=== PATIENT | female | born 1985 | race Caucasian/White ===

== ENCOUNTER → 2016-10-16 | Outpatient (CLI) | payer OTHER ==
[~2016-10-16] MED LIST: LORA10CA2 PO; ONDA4TAB10 SL
[2016-10-16 12:40] LABS: PREG INTERNAL NEGATIVE QC NEG CLEAR BACKGROUND; PREG INTERNAL POSITIVE QC POS CONTROL LINE
== END | disposition home or self-care (01) ==
LOC: C.LAB1850 11:02
PROVIDERS: ATTEND Obstetrics & Gynecology
DX: N91.2 Amenorrhea, unspecified (principal)

== ENCOUNTER 2016-11-17 10:39 | Emergency (ER) | payer OTHER ==
[~2016-11-17] VITALS: Ht 167.6 cm; Wt 81.6 kg
[2016-11-17 10:53] VITALS: TEMP 36.7; Ht 167.6 cm; Wt 81.6 kg
[2016-11-17] MEDS ORDERED: LORA10CA2 PO (11:18)
[2016-11-17 11:38] LABS: BASO % 0.3 %; BASO ABS # 0.01 K/uL (0-0.2); COMPLETE YES; EOS % 0.5 %; HEMATOCRIT 44.7 % (37-47); LYMPH % 14.4 %; LYMPH ABS # 0.54 K/uL (1.2-3.4); MEAN CELL VOLUME 88.9 fL (80-100); MEAN CORPUSCULAR HGB CONC 32.7 g/dl (32-36); MONO % 6.9 %; NEUT % 77.9 %; PLATELET COUNT 217 K/uL (130-400); RED BLOOD COUNT 5.03 M/uL (4.2-5.4); WHITE BLOOD COUNT 3.75 K/uL (4.8-10.8)
[2016-11-17 11:53] LABS: URINE APPEARANCE CLOUDY (CLEAR); URINE BILIRUBIN NEG (NEG); URINE COLOR DK YELLOW; URINE EPITHELIAL CELL AUTO >30 /lpf (0-5); URINE NITRITE NEG (NEG); URINE SPECIFIC GRAVITY 1.021 (1.000-1.030); UROBILINOGEN NEG (NEG); ZZUR CULT IF INDIC CLEAN CATCH YES
[2016-11-17 11:56] LABS: MANUAL MICROSCOPIC REQUIRED? NO; REVIEW REQ? YES
[2016-11-17 11:58] LABS: BUN/CREATININE RATIO 6.4 (10-20); CALCIUM 8.9 mg/dl (8.5-10.1); CREATININE 0.81 mg/dl (0.60-1.20); POTASSIUM 3.4 mmol/L (3.5-5.1)
[2016-11-17] MEDS ORDERED: SODIUM CHLORIDE 0.9% 1000ML 1,000 ML IV ONE (12:07)
[2016-11-17] MEDS ORDERED: SODIUM CHLORIDE 0.9% 1000ML 1,000 ML IV STA (12:07)
[2016-11-17] MEDS ORDERED: MoRPHine SULFATE 4 MG/ML 1 ML CARP\\VIAL IV STA (12:07)
[2016-11-17] MEDS ORDERED: KETOROLAC TROMETHAMINE 30 MG/ML VIAL IV STA (12:07)
--- NOTE | 2016-11-17 12:11 | EMERGENCY ROOM VISIT NOTE ---
History Report prepared by Stephany: Clay Crsos Under the Supervision of: Dr. Bobby Heller M.D. First contact with patient: 12:00 Chief Complaint: ABDOMINAL PAIN Stated Complaint: ABD. PAIN History of Present Illness The patient is a 31 year old female who presents to the Emergency Room with complaints of worsening intermittent, sharp and stabbing abdominal pain for the past five days. The patient states that she has been feeling worn out, nauseous , and she has had intermittent headaches and diarrhea this morning. The patient states that it got sharp last night in her epigastric area. She states that nothing makes it better or worse, and she denies any vomiting. She denies any melena, hematochezia, urinary symptoms, vaginal bleeding, vaginal discharge, cough, or swelling in her legs. The patient states that she has not had any abdominal surgeries, and she has not chronic medical problems. The patient states that she has not been eating very much, and not many people around her are sick. Source of History: patient Onset: five days ago Position: abdomen Quality: sharp, stabbing Associated Symptoms: + headache, + nausea, + diarrhea, No vomiting, No melena, No hematochezia, No urinary symptoms Review of Systems See HPI for pertinent positives & negatives. A total of 10 systems reviewed and were otherwise negative. Past Medical & Surgical Surgical Problems: (1) Hx of tonsillectomy (2) [place] teeth extracted Old medical records were reviewed. Nurse's notes were reviewed and I agree with. Family History FHx: cancer Hypertension Kidney disease Kidney stones Social History Smoking Status: Never Smoker Marital Status: Housing Status: lives with family Occupation Status: employed Current/Historical Medications Scheduled Loratadine (Claritin), 10 MG PO DAILY Ondasetron Odt (Zofran Odt), 4 MG SL Q6H Allergies Uncoded Allergies: NKDA (Allergy, Unknown, 10/02/03) Physical Exam Vital Signs Date Time Temp Pulse Resp B/P (MAP) Pulse Ox O2 Delivery O2 Flow Rate FiO2 11/17/16 13:48 95 18 126/89 97 11/17/16 13:02 92 16 139/96 95 Room Air 11/17/16 10:53 36.7 98 18 134/80 96 Room Air Physical Exam General: Non-ill appearing young female in no acute distress. HEENT: Normal cephalic atraumatic. Pupils are equal round and reactive to light. Extraocular movements are intact. Oropharynx is pink with moist mucous membranes. No swelling of the mouth lips or tongue. Neck: Supple with a midline trachea. No meningeal signs or stiffness, no JVD or bruits. No Stridor. Chest: Clear to auscultation bilaterally. No wheezes or rhonchi. No increased work of breathing. Heart: regular rate and rhythm. Abdomen: Minimal epigastric tenderness. Negative Abebe's sign. No lower abdominal tenderness. Soft, nondistended without rebound guarding or rigidity. Extremities: No cyanosis clubbing or edema. No calf tenderness or assymetry Spine/Back. Non tender to palpation. No CVA tenderness Skin: Good turgor without rashes. Neurologic exam: Cranial nerves two through 12 are intact. Motor and sensation are intact and symmetrical throughout. Medical Decision & Procedures ER Provider Diagnostic Interpretation: Radiology results as stated below per my review and radiologist interpretation: BILIARY ULTRASOUND CLINICAL HISTORY: Right upper quadrant abdominal pain COMPARISON STUDY: No previous studies for comparison. FINDINGS: The pancreas appears sonographically normal. The gallbladder appears sonographically normal. The liver appears sonographically normal. There is no ductal dilatation. The common bile duct measures 3 mm. There is no right-sided hydronephrosis. IMPRESSION: Normal biliary ultrasound. Electronically signed by: Mike Daniels M.D. 11/17/2016 12:47 PM Dictated Date/Time: 11/17/2016 12:47 PM Laboratory Results 11/17/16 11:15 Red Blood Count 5.03, Mean Corpuscular Volume 88.9, Mean Corpuscular Hemoglobin 29.0, Mean Corpuscular Hemoglobin Concent 32.7, Mean Platelet Volume 9.0, Neutrophils (%) (Auto) 77.9, Lymphocytes (%) (Auto) 14.4, Monocytes (%) (Auto) 6.9, Eosinophils (%) (Auto) 0.5, Basophils (%) (Auto) 0.3, Neutrophils # (Auto) 2.92, Lymphocytes # (Auto) 0.54, Monocytes # (Auto) 0.26, Eosinophils # (Auto) 0.02, Basophils # (Auto) 0.01 11/17/16 11:15 Test 11/17/16 11:10 11/17/16 11:15 11/17/16 11:29 Urine Color DK YELLOW Urine Appearance CLOUDY (CLEAR) Urine pH 5.0 (4.5-7.5) Urine Specific [place] 1.021 (1.000-1.030) Urine Protein NEG (NEG) Urine Glucose (UA) NEG (NEG) Urine Ketones 3+ (NEG) Urine Occult Blood TRACE (NEG) Urine Nitrite NEG (NEG) Urine Bilirubin NEG (NEG) Urine Urobilinogen NEG (NEG) Urine Leukocyte Esterase NEG (NEG) Urine WBC (Auto) 10-30 /hpf (0-5) Urine RBC (Auto) 10-30 /hpf (0-4) Urine Hyaline Casts (Auto) 1-5 /lpf (0-5) Urine Epithelial Cells (Auto) >30 /lpf (0-5) Urine Bacteria (Auto) 2+ (NEG) Urine Pathogenic Casts /lpf (0) Urine Mucus PRESENT (NONE PRSENT) White Blood Count 3.75 K/uL (4.8-10.8) Red Blood Count 5.03 M/uL (4.2-5.4) Hemoglobin 14.6 g/dL (12.0-16.0) Hematocrit 44.7 % (37-47) Mean Corpuscular Volume 88.9 fL (80-100) Mean Corpuscular Hemoglobin 29.0 pg (25-34) Mean Corpuscular Hemoglobin Concent 32.7 g/dl (32-36) Platelet Count 217 K/uL (130-400) Mean Platelet Volume 9.0 fL (7.4-10.4) Neutrophils (%) (Auto) 77.9 % Lymphocytes (%) (Auto) 14.4 % Monocytes (%) (Auto) 6.9 % Eosinophils (%) (Auto) 0.5 % Basophils (%) (Auto) 0.3 % Neutrophils # (Auto) 2.92 K/uL (1.4-6.5) Lymphocytes # (Auto) 0.54 K/uL (1.2-3.4) Monocytes # (Auto) 0.26 K/uL (0.11-0.59) Eosinophils # (Auto) 0.02 K/uL (0-0.5) Basophils # (Auto) 0.01 K/uL (0-0.2) RDW Standard Deviation 42.8 fL (36.4-46.3) RDW Coefficient of Variation 13.1 % (11.5-14.5) Immature Granulocyte % (Auto) 0.0 % Immature Granulocyte # (Auto) 0.00 K/uL (0.00-0.02) Anion Gap 7.0 mmol/L (3-11) Est Creatinine Clear Calc Drug Dose 110.3 ml/min Estimated GFR () 113.8 Estimated GFR (Non- 98.1 BUN/Creatinine Ratio 6.4 (10-20) Calcium Level 8.9 mg/dl (8.5-10.1) Total Bilirubin 0.3 mg/dl (0.2-1) Aspartate Amino Transf (AST/SGOT) 22 U/L (15-37) Alanine Aminotransferase (ALT/SGPT) 21 U/L (12-78) Alkaline Phosphatase 65 U/L (45-117) Total Protein 6.9 gm/dl (6.4-8.2) Albumin 3.5 gm/dl (3.4-5.0) Globulin 3.4 gm/dl (2.5-4.0) Albumin/Globulin Ratio 1.0 (0.9-2) Lipase 149 U/L (73-393) Urine Test NEG (NEG) Laboratory studies as stated above per my review. Medications Administered Medications (Trade) Dose Ordered Sig/Manjit Route Start Time Stop Time Status Last Admin Dose Admin Ketorolac Tromethamine (Toradol Inj) 30 mg NOW STAT IV 11/17/16 12:07 11/17/16 12:09 DC 11/17/16 13:03 30 MG Morphine Sulfate (MoRPHine SULFATE INJ) 4 mg NOW STAT IV 11/17/16 12:07 11/17/16 12:09 DC 11/17/16 13:04 4 MG Sodium Chloride 1,000 ml @ 999 mls/hr Q1H1M STAT IV 11/17/16 12:07 11/17/16 13:07 DC 11/17/16 13:05 999 MLS/HR ED Course 1200: Past medical records reviewed. The patient was evaluated in room C7, and a complete history and physical examination were performed. 1207: Sodium Chloride 1000 ml @ 200 mls/hr IV, Sodium Chloride 1000 ml @ 999 mls /hr IV, Morphine Sulfate 4mg IV, Toradol Inj 30mg IV 1332: I reevaluated the patient, and she was feeling better. I pressed on the patient's abdomen, and she had no tenderness. She states that she wants to go home. The patient will be discharged home. Medical Decision Differentials include, but are not limited to; viral illness, gall bladder disease, appendicitis, dehydration, , UTI, electrolyte or metabolic abnormality. This patient comes in as described above. She was placed in room C7. She is here for intermittent abdominal pain and nausea. On exam, her abdomen is benign and nontender. She was hydrated with IV normal saline bolus. She also received morphine 4 mg IV and Zofran 4 mg IV. She was reassessed and was established white count. She has no significant electrolyte or metabolic abnormalities abdomen otherwise. She has nothing to suggest sepsis. She's had no lower abdominal tenderness to suggest appendicitis or diverticulitis. Gallbladder ultrasound unremarkable. She has nothing to suggest pancreatitis. She is not . Her urinalysis shows a contaminated specimen. Medication Reconcilliation Current Medication List: was personally reviewed by me Blood Pressure Screening Patient's blood pressure: Normal blood pressure Impression Primary Impression: Nausea Additional Impression: Epigastric abdominal pain Scribe Attestation The scribe's documentation has been prepared under my direction and personally reviewed by me in its entirety. I confirm that the note above accurately reflects all work, treatment, procedures, and medical decision making performed by me. Departure Information Dispostion Home / Self-Care Prescriptions Ondasetron Odt (ZOFRAN ODT) 4 Mg Tab 4 MG SL Q6H for Nausea, #10 TAB Prov: Bobby Heller M.D. 11/17/16 Referrals Flakito Trotter M.D. (PCP) Forms HOME CARE DOCUMENTATION FORM, IMPORTANT VISIT INFORMATION Patient Instructions My [facility] [address] Additional Instructions Rest Drink plenty of fluids. Mild diet. For nausea, May use Zofran 4 mg every 6 hours, take with food Return if: Fever, increasing pain or worsening symptoms, not tolerating fluids, fever or chills, any new problems or concerns Follow-up with your doctor in 1-2 days for recheck if not better or return here at any point if symptoms worsen Problem Qualifiers
[2016-11-17 12:20] LABS: URINE MUCUS PRESENT (NONE PRSENT)
--- NOTE | 2016-11-17 12:49 | DIAGNOSTIC IMAGING REPORT ---
BILIARY ULTRASOUND CLINICAL HISTORY: Right upper quadrant abdominal pain COMPARISON STUDY: No previous studies for comparison. FINDINGS: The pancreas appears sonographically normal. The gallbladder appears sonographically normal. The liver appears sonographically normal. There is no ductal dilatation. The common bile duct measures 3 mm. There is no right-sided hydronephrosis. IMPRESSION: Normal biliary ultrasound. Electronically signed by: Mike Daniels M.D. 11/17/2016 12:47 PM Dictated Date/Time: 11/17/2016 12:47 PM
[2016-11-17] MEDS ORDERED: ONDA4TAB10 SL (13:33)
[2016-11-17 13:48] VITALS: BP 126/89; PULSE 95; O2SAT 97
== END 2016-11-17 13:48 | disposition home or self-care (01) ==
LOC: C.EDB 10:41 → C.EDC 13:48
DX: R11.0 Nausea (principal); R10.13 Epigastric pain; Z82.49 Family history of ischemic heart disease and other diseases of the circulatory system

== ENCOUNTER 2017-04-25 12:26 | Emergency (ER) | payer OTHER ==
[~2017-04-25] VITALS: Ht 170.2 cm; Wt 84.7 kg
[2017-04-25 12:32] VITALS: TEMP 37; Ht 170.2 cm; Wt 84.7 kg
[2017-04-25] MEDS ORDERED: LIDOCAINE/EPINEPHRINE 1% 20 ML VIAL INFIL STA (12:59)
[2017-04-25] MEDS ORDERED: ACETAMINOPHEN 325 MG TAB PO STA (14:29)
--- NOTE | 2017-04-25 14:36 | DIAGNOSTIC IMAGING REPORT ---
RIGHT PERISCAPULAR SOFT TISSUE ULTRASOUND CLINICAL HISTORY: Right periscapular mass. COMPARISON STUDY: No previous studies for comparison. FINDINGS: In the right medial periscapular region, there is a hypoechoic subcutaneous complex avascular mass measuring 24 x 16 x 22 mm. IMPRESSION: Subcutaneous complex 24 x 16 x 22 mm hypoechoic mass, corresponds to the palpable abnormality. This lesion is avascular without surrounding hypervascularity. The lesion is felt to be complex cystic or solid. Electronically signed by: Mike Daniels M.D. 04/25/2017 2:34 PM Dictated Date/Time: 04/25/2017 2:31 PM
--- NOTE | 2017-04-25 14:42 | EMERGENCY ROOM VISIT NOTE ---
History First contact with patient: 12:54 Chief Complaint: INFECTION Stated Complaint: INFECTED CYST ON BACK Nursing Triage Summary: patient with cyst on the back that has not improved has been on antibiotics since thursday History of Present Illness The patient is a 31 year old female who presents to the Emergency Room via private vehicle with complaints of "infected cyst on back". The patient states that this past Thursday she noticed redness on her right posterior scapular region on the skin. This was overlying an area of a pre-existing cyst that she' s had for about 15 years. She notes now it is red, painful therefore prompting a visit to her family doctor on Thursday. They placed upon Keflex. This was because she notes that she may becoming /trying to conceive. She notes that she did have a vomiting 4 days ago, but none since. She notes that her temperature yesterday was around 99 but not over 100. There is no vomiting today. Review of Systems A complete 6-point Review of Systems was discussed with the patient, with pertinent positives and negatives listed in the History of Present Illness. All remaining Review of Systems questions can be considered negative unless otherwise specified. Past Medical/Surgical History Surgical Problems: (1) Hx of tonsillectomy (2) [place] teeth extracted Family History FHx: cancer Hypertension Kidney disease Kidney stones Social History Smoking Status: Never Smoker Marital Status: Housing Status: lives with family Occupation Status: employed Current/Historical Medications Scheduled Clindamycin HCl (Clindamycin HCl), 1 CAP PO TID Physical Exam Vital Signs Date Time Temp Pulse Resp B/P (MAP) Pulse Ox O2 Delivery O2 Flow Rate FiO2 04/25/17 15:40 72 20 127/76 99 04/25/17 14:30 76 18 135/96 96 Room Air 04/25/17 12:32 37.0 124 20 145/87 98 Room Air Physical Exam VITAL SIGNS - Vital signs and nursing notes were reviewed. Stable. Tachycardic , this resolved throughout her stay without intervention. GENERAL -31-year-old female appearing her stated age who is in no acute distress. Communicates well with provider and answers questions appropriately. SKIN - there is a small, nonfluctuant 3 cm x 3 cm raised erythematous region on the patient's back, within the skin overlying the right scapula. It is just medial to the scapula. There is no drainage. There is a small pinpoint center that appears to have an ulceration/hole. HEAD - NC/AT. EYES - Sclera anicteric. Medical Decision & Procedures ER Provider Diagnostic Interpretation: RIGHT PERISCAPULAR SOFT TISSUE ULTRASOUND CLINICAL HISTORY: Right periscapular mass. COMPARISON STUDY: No previous studies for comparison. FINDINGS: In the right medial periscapular region, there is a hypoechoic subcutaneous complex avascular mass measuring 24 x 16 x 22 mm. IMPRESSION: Subcutaneous complex 24 x 16 x 22 mm hypoechoic mass, corresponds to the palpable abnormality. This lesion is avascular without surrounding hypervascularity. The lesion is felt to be complex cystic or solid. Electronically signed by: Mike Daniels M.D. 04/25/2017 2:34 PM Dictated Date/Time: 04/25/2017 2:31 PM Medications Administered Medications (Trade) Dose Ordered Sig/Manjit Route Start Time Stop Time Status Last Admin Dose Admin Acetaminophen (Tylenol Tab) 650 mg NOW STAT PO 04/25/17 14:29 04/25/17 14:30 DC 04/25/17 14:43 650 MG Medical Decision Patient was seen and evaluated as above. She presents to us today with a questionable abscess overlying her right scapula. She is nontoxic on exam. Although she notes that she did vomit 4 days ago, I believe it to be unrelated to this today. I do not suspect sepsis. I do not suspect SIRS. She is tachycardic, I believe secondary to being anxious. This was found to not be persistent throughout her stay as her vitals were repeated and they were 100% normal. I did discuss with her benefits versus risk of attempting to drain the suspected small abscess. I informed her that this could just be induration, and not an abscess. Consent was obtained. The region was cleansed with Betadine, and anesthetized with 2 mL's of 1% buffered lidocaine with epinephrine. A small scalpel was utilized to create a 1 mm incision to the depth of 3 mm in the central most region of the raised suspected abscess. No drainage was appreciated. One other attempt was made in a similar location without drainage. He did have a cystic like feel upon incision. Decision was made to obtain ultrasound to rule out underlying deep abscess. This revealed a complex cyst. I suspect this likely be more solid/sebaceous cystlike in nature. I do not suspect abscess. I believe that she most likely irritated the area overlying the 15-year-old cyst, and the small pinpoint area is the area where the infection may gotten him causing overlying cellulitis. At this time I will add clindamycin to her Keflex regimen as it is category B. She was thoroughly educated upon risk of C. difficile. She appears stable from patient management. Again she is nontoxic on exam. She was given Tylenol for pain. She has an appointment Thursday with her family doctor of which I believe is appropriate for follow-up regarding her wound here today. She is to return with worsening of which she was thoroughly educated upon those symptoms which to return. She was educated upon management, had questions answered prior to discharge, and was discharged home in good condition. In evaluation treatment this patient the following differential diagnoses were entertained: Cellulitis, sepsis, abscess, sebaceous cyst, among others. Impression Primary Impression: Cellulitis Departure Information Dispostion Home / Self-Care Condition GOOD Prescriptions Clindamycin HCl (Clindamycin HCl) 300 Mg Cap 1 CAP PO TID for 10 Days, #30 CAP Prov: Héctor Helton PA-C 04/25/17 Referrals Flakito Trotter M.D. (PCP) Patient Instructions My [facility] Additional Instructions You were seen in the emergency department for cellulitis of your R shoulder blade region. At this time there is no evidence of abscess or collection of pus. It is a solid collection likely a sebaceous cyst. Ultrasound as below. I recommend clindamycin 300 mg every 8 hours for 10 days. This is in addition to the Keflex. This is category B. Please eat yogurt with this. Please keep your scheduled follow-up on Thursday with her family doctor. Please return with any new/concerning symptoms as we discussed. RIGHT PERISCAPULAR SOFT TISSUE ULTRASOUND CLINICAL HISTORY: Right periscapular mass. COMPARISON STUDY: No previous studies for comparison. FINDINGS: In the right medial periscapular region, there is a hypoechoic subcutaneous complex avascular mass measuring 24 x 16 x 22 mm.
[2017-04-25] MEDS ORDERED: CLC/300 PO (15:08)
[2017-04-25 15:40] VITALS: BP 127/76; PULSE 72; O2SAT 99
== END 2017-04-25 15:42 | disposition home or self-care (01) ==
LOC: C.EDB 12:27 → C.EDD 15:42
DX: L03.312 Cellulitis of back [any part except buttock and flank] (principal); Z98.890 Other specified postprocedural states; Z80.9 Family history of malignant neoplasm, unspecified; Z82.49 Family history of ischemic heart disease and other diseases of the circulatory system; Z84.1 Family history of disorders of kidney and ureter

== ENCOUNTER 2022-07-18 05:32 | Inpatient (IN) ==
--- NOTE | 2022-07-09 14:24 | Anesthesiology Consultation ---
Date of Service July 09, 2022 Assessment & Plan (1) Encounter for pre-operative examination: - COVID screening: Per assessment on 07/09: No known COVID-19 positive contacts or current COVID-19 related symptoms. Travel screen negative. Patient vaccinated. At surgeon discretion if preop Covid testing being done. - Anesthesia concern: delivery of twins ([facility] 08/2018)- patient states she had severe nausea/vomiting felt related to "something in her spinal." Also concern of "dozing off and on" and drowsiness + violently shaking for about 12 hours. Anesthesia records scanned into [employer]. Chart Review Chart Review: entry level finance initiated History Surgery Operation Date: 07/18/22 07:30 Proposed Procedures p Section (Delivery of Baby Through Abdominal Incision) - Sergei Duckworth MD Height/Weight Height: 5 ft 7 in Weight: 97.976 kg Allergies Allergy/AdvReac Type Severity Reaction Status Date / Time hydrocodone AdvReac Severe N/V Verified 07/09/22 13:29 Medications Home Medications Medication Instructions Recorded Confirmed Last Taken vit no.95-ferrous 1 tab PO QAM 11/07/18 07/09/22 11/06/18 fumarate 28 mg-folic acid 800 mcg tablet () acetone (urine) test (Ketone Urine #50 ea 04/09/22 07/07/22 Unknown Test strips) blood sugar diagnostic (OneTouch #150 ea 04/09/22 07/07/22 Unknown Verio test strips) blood-glucose meter (OneTouch #1 ea 04/09/22 07/07/22 Unknown Verio Reflect Meter) lancets 33 gauge (OneTouch Delica #150 ea 04/09/22 07/07/22 Unknown Lancets) insulin NPH isoph U-100 human 100 8 unit (0.08 mL) subcut QPM #15 mL 05/07/22 07/09/22 Unknown unit/mL (3 mL) subcutaneous pen (Novolin N FlexPen) pen needle, diabetic 32 gauge x #100 ea 05/12/22 07/07/22 Unknown " (BD Ultra-Fine Bee Pen Needle) doxylamine succinate 25 mg tablet 25 mg PO HS PRN Sleep 07/09/22 07/09/22 Unknown (Unisom (doxylamine)) famotidine 10 mg tablet 10 mg PO HS 07/09/22 07/09/22 Unknown Past Medical History Medical History Anemia Gestational diabetes Salmonella food poisoning October 2017 Past Family History Family History Mother Hypertension Grandmother Diabetes Father Hypertension Other No family history of adverse response to anesthesia Past Surgical History Surgical History History of anesthesia reaction delivery of twins ([facility] 08/2018)- patient states she had severe nausea/vomiting felt related to "something in her spinal." Also concern of "dozing off and on" and drowsiness + violently shaking for about 12 hours. Anesthesia records scanned into [employer]. History of removal of cyst April 2017 on back S/P appendectomy 2018 S/P tonsillectomy Status post delivery twins 5-22-19 [place] teeth extracted Social History Smoking Status: Never smoker Do You Dip or Chew Tobacco: No Hx Alcohol Use: No Hx Substance Use: No substance use type: does not use
[2022-07-18] MEDS ORDERED: LACTATED RINGER'S 1,000 ML IV SCH ×2 (05:45→08:58)
[2022-07-18] MEDS ORDERED: CITRIC ACID/SODIUM CITRATE 15 ML UDC PO SCH (06:00)
[2022-07-18 06:21] LABS: Hematocrit (blood only) 38.7 % (37.0-47.0); Hemoglobin 12.9 g/dl (12.0-16.0); Mean Corpuscular Hemoglobin 29.5 pg (25.0-34.0); Mean Corpuscular Hgb Conc 33.3 g/dL (32.0-36.0); Mean Corpuscular Volume 88.4 fL (80.0-100.0); Platelet Count 274 K/uL (130-400); RDW Coefficient of Variation 13.2 % (11.5-14.5); RDW Standard Deviation 42.8 fL (36.4-46.3); Red Blood Count 4.38 M/uL (4.20-5.40); White Blood Count 7.45 K/ul (4.8-10.8)
[2022-07-18] MEDS ORDERED: fentaNYL citrate PF 100 MCG/2 ML VIAL ONE (06:55)
[2022-07-18] MEDS ORDERED: ONDANSETRON INJ 2 MG/ML 2 ML VIAL ONE (06:55)
[2022-07-18] MEDS ORDERED: PHENYLEPHRINE 100MCG/ML 5ML SYR ONE (06:55)
[2022-07-18] MEDS ORDERED: OXYTOCIN 10 UNITS/ML 10ML VIAL ONE (06:55)
[2022-07-18] MEDS ORDERED: MoRPHine SULFATE PF 1 MG/ML 10 ML AMP/VIAL ONE (06:55)
--- NOTE | 2022-07-18 07:38 | History & Physical Report ---
Date of Service July 18, 2022 Assessment & Plan (1) Supervision of elderly multigravida: Plan: 37yo presents for repeat LTCS with Hx of x 1 for twin delivery. 1. Fetus: Cat 1/ Reactive 2. Delivery: RLTCS. Consent reviewed and signed yesterday 3. A2gDM - BG prior to OR 4. Vitals: WNL (2) Previous delivery affecting , antepartum: (3) Insulin controlled gestational diabetes mellitus (GDM) during : Admission and Anticipated Discharge Date Admission Date: July 18, 2022 History of Present Illness Primary Care Provider: NO PCP 37yo presents for repeat LTCS with Hx of x 1 for twin delivery. complications: and Delivery Plans AMA *Weekly NST's @ 36wks GDM on insulin *Wkly NSTs @32wks and Twice wkly @36wks *Serial growth US @28wks *Deliver by [facility] Previous Section affecting - LTCS per report Considering TOLAC C/S SCHEDULED FOR 07/18/[address] DICKSON OB Labs: Blood Type O Positive 12/10/21 Antibody Screen NEGATIVE 12/10/21 Hemoglobin 11.4 g/dl (12.0-16.0) L 04/29/22 Hematocrit 35.1 % (34.1-44.9) 04/29/22 Mean Corpuscular Volume 89.1 fL (80.0-100.0) 12/10/21 Platelet Count 352 K/uL (130-400) 12/10/21 Rubella IgG AntibodyE Immune (Immune) 12/10/21 Rapid Plasma Reagin Nonreactive (Nonreactive) 12/10/21 Hepatitis B Surface Antigen Neg (Neg) 03/30/18 Hepatitis B Surface Antigen. NON-REACTIVE (NON-REACTIVE) 12/10/21 Hepatitis C Antibody (EIA) NON-REACTIVE (NON-REACTIVE) 12/10/21 HIV (1&2) Ab and P24 Ag, 4th Gener Neg (Neg) 03/30/18 HIV (1&2) Ag and Ab Confirmation NON-REACTIVE (NON-REACTIVE) 12/10/21 Glucose 1 Hour 50 gm Load 134 mg/dl (70-130) H 02/04/22 Maternal Serum Alpha Fetoprotein 81.4 NG/ML 05/28/18 OB Optional Labs: Chlamydia trachomatis RNA NOT DETECTED (NOT DETECTED) 12/10/21 Neisseria gonorrhoeae RNA NOT DETECTED (NOT DETECTED) 12/10/21 Alpha Fetoprotein Triple Screen SEE NOTE 05/28/18 Labs Reviewed: msafp declined --smp low risk panorama--akh failed 16 week 2 hr gtt.--akh Allergies Allergy/AdvReac Type Severity Reaction Status Date / Time hydrocodone AdvReac Severe N/V Verified 07/17/22 09:03 Home Medications Medication Instructions Recorded Confirmed Type vit no.95-ferrous 1 tab PO QAM 11/07/18 07/18/22 History fumarate 28 mg-folic acid 800 mcg tablet () acetone (urine) test (Ketone Urine #50 ea 04/09/22 07/17/22 Rx Test strips) blood sugar diagnostic (OneTouch #150 ea 04/09/22 07/17/22 Rx Verio test strips) blood-glucose meter (OneTouch #1 ea 04/09/22 07/17/22 Rx Verio Reflect Meter) lancets 33 gauge (OneTouch Delica #150 ea 04/09/22 07/17/22 Rx Lancets) pen needle, diabetic 32 gauge x #100 ea 05/12/22 07/17/22 Rx 5/32" (BD Ultra-Fine Bee Pen Needle) doxylamine succinate 25 mg tablet 25 mg PO HS PRN Sleep 07/09/22 07/18/22 History (Unisom (doxylamine)) famotidine 10 mg tablet 10 mg PO HS 07/09/22 07/18/22 History insulin NPH isoph U-100 human 100 12 unit subcut QPM 07/18/22 07/18/22 History unit/mL (3 mL) subcutaneous pen (Novolin N FlexPen) Patient History Medical History Anemia Gestational diabetes Salmonella food poisoning October 2017 Surgical History History of anesthesia reaction delivery of twins ([facility] 08/2018)- patient states she had severe nausea/vomiting felt related to "something in her spinal." Also concern of "dozing off and on" and drowsiness + violently shaking for about 12 hours. Anesthesia records scanned into [employer]. History of removal of cyst April 2017 on back S/P appendectomy 2018 S/P tonsillectomy Status post delivery twins 5-22-19 [place] teeth extracted Family History Mother Hypertension Grandmother Diabetes Father Hypertension Other No family history of adverse response to anesthesia Social History Smoking Status: Never smoker Second Hand Exposure: No; Do You Dip or Chew Tobacco: No; Tobacco Cessation Education Requested by Patient: No Hx Alcohol Use: No Hx Substance Use: No Preferred Language: Luxembourgish Communication Ability: Effective Child Nutrition Assistant Required: No Beliefs That Will Affect Care: None marital status: marital status details: Spouse: Dashawn (32) [phone] Current Living Situation: Spouse Current Living Situation Comment: lives with spouse and children, no pets current occupational status: employed current occupation: Teacher Other Information That Helps Us Care for You: No Feels Safe at Home: Yes Safety Concerns: Feels Safe At This Time Assistive Devices: Contacts Physical Exam Constitutional: WD/WN, vitals as above well developed, well nourished and + well hydrated; no acute distress Respiratory: normal respiratory effort, lungs clear to auscultation no respiratory distress, no labored breathing and no cough Cardiovascular: RRR, no murmur, no edema Heart Sounds: normal S1 and normal S2 Gastrointestinal (Abdomen): normal bowel sounds, soft, nontender, no hepatosplenomegaly Inspection/Auscultation: abdomen not distended and no abdominal edema Psychiatric: A+Ox3, euthymic affect Apperance: appropriately dressed and appropriately groomed Genitourinary: OB Exam Abdomen: + vertex OB Exam Monitor Tracing: + external FHT monitor used, + external uterine monitor used, + category I and + normal FHT variability; no early decelerations present, no late decelerations present and no variable decelerations Lymphatic: no cervical or axillary lymphadenopathy Results & Data Vital Signs (Past 12 Hours) Vital Signs Temp Pulse Resp BP 07/18/22 06:07 98 H 117/80 07/18/22 05:46 36.7 C 18 Code Status & VTE Plan VTE Prophylaxis Plan VTE Prophylaxis will be ordered: Yes Coding Level of Care Code None Diagnoses Supervision of elderly multigravida O09.529 Previous delivery affecting , antepartum O34.219 Insulin controlled gestational diabetes mellitus (GDM) during O24.414
[2022-07-18] MEDS ORDERED: MoRPHine SULFATE PF 1 MG/ML 10 ML AMP/VIAL INT SPINAL ONE (07:59)
[2022-07-18] MEDS ORDERED: ONDANSETRON INJ 2 MG/ML 2 ML VIAL IV PRN ×2 (07:59→08:58)
[2022-07-18] MEDS ORDERED: NALBUPHINE HCL INJ 10 MG/ML AMP IV PRN (07:59)
[2022-07-18] MEDS ORDERED: MoRPHine SULFATE 2 MG/ML CARP IV PRN (07:59)
[2022-07-18] MEDS ORDERED: NALOXONE HCL 1 MG in SODIUM CHLORIDE 0.9% 1000ML 1,000 ML IV PRN (07:59)
[2022-07-18] MEDS ORDERED: NALOXONE HCL 0.4 MG/1 ML VIAL/CARP IV PRN (07:59)
[2022-07-18] MEDS ORDERED: ePHEDrine sulfate 50 MG/ML AMP IV PRN (07:59)
[2022-07-18] MEDS ORDERED: LACTATED RINGER'S 500 ML IV PRN (07:59)
[2022-07-18] MEDS ORDERED: PROMETHAZINE HCL 6.25 MG in SODIUM CHLORIDE 0.9% 50 ML IV PRN (07:59)
[2022-07-18] MEDS ORDERED: NALOXONE HCL 0.08 MG in SYRINGE 1.8 ML IV PRN (07:59)
[2022-07-18] MEDS ORDERED: diphenhydrAMINE 50 MG/ML VIAL IV PRN (07:59)
[2022-07-18] MEDS ORDERED: SODIUM CHLORIDE 0.9% 1000ML 1,000 ML IV SCH (08:00)
[2022-07-18] MEDS ORDERED: DC INTRASPINAL MORPHINE SCH (08:00)
[2022-07-18] MEDS ORDERED: NO NARCOTICS OR SEDATIVES SCH (08:00)
[2022-07-18] MEDS ORDERED: ePHEDrine sulfate 50 MG/ML SYR ONE (08:53)
[2022-07-18] MEDS ORDERED: HYDROCORTISONE ACETATE 25 MG SUPP PR PRN (08:58)
[2022-07-18] MEDS ORDERED: MAGNESIUM HYDROXIDE SUSP 30 ML UDC PO PRN (08:58)
[2022-07-18] MEDS ORDERED: DIPHTHERIA/TETANUS/PERTUSSIS 0.5mL SYR/VIAL (Age 7+yrs) IM ONE (08:58)
[2022-07-18] MEDS ORDERED: PROMETHAZINE HCL 25 MG in SODIUM CHLORIDE 0.9% 50 ML IV PRN (08:58)
[2022-07-18] MEDS ORDERED: BENZOCAINE 20% AER SPR 82.5 GM CAN EXT PRN (08:58)
[2022-07-18] MEDS ORDERED: SENNA 8.6 MG TAB PO PRN (08:58)
--- NOTE | 2022-07-18 09:06 | Post Operative Brief Note ---
PG Immediate Post Op with CF Date of Surgery July 18, 2022 Pre & Post Diagnosis Operation Date: 07/18/22 07:30 Pre-Op Diagnosis: Insulin Dependent Gestational Diabetic; Repeat Caesarean Section at Term Post-Op Diagnosis: Same;Delivery of a live male child at 0815 I identified the patient and participated in the time-out.: Yes Procedure Operation Date: 07/18/22 07:30 Actual Procedures p Section (Delivery of Baby Through Abdominal Incision) delivery of live male child 0815 - Sergei Duckworth MD Surgeon Sergei Duckworth MD Watch Engineer None Estimated Blood Loss 600 Findings Consistent with Post-Op Diagnosis Specimens Specimen Description: A. Placenta-hold B. Cord Blood Drains Burgos Catheter (inserted after spinal, draining clear yellow urine) OB Procedure charges OB Charges 39470
--- NOTE | 2022-07-18 09:07 | Anesthesiology Progress Note ---
Date of Service July 18, 2022 Anesthesia Post Procedure Vital Signs Vital Signs: Temp Pulse Resp BP Pulse Ox 07/18/22 09:03 81 117/59 L 99 07/18/22 07:38 20 07/18/22 07:38 36.8 C 20 07/18/22 07:32 80 129/80 07/18/22 06:07 98 H 117/80 07/18/22 05:46 36.7 C 18 Transfer of Care Handoff Completed per policy Notes Mental Status: alert / awake / arousable and participated in evaluation Patient Amnestic to Procedure: No Nausea / Vomiting: adequately controlled Pain: adequately controlled Airway Patency, RR, SpO2: stable & adequate BP & HR: stable & adequate Hydration State: stable & adequate Neuraxial Anesthesia: was administered and sensory block is resolving Anesthetic Complications: no major complications apparent and Pt Satisfied with anesthetic care
[2022-07-18] MEDS: KETOROLAC 30 MG/ML VIAL IV PRN ×2 (10:12→23:33)
[2022-07-18] MEDS: OXYTOCIN 20 UNITS in LACTATED RINGER'S 1,000 ML IV SCH ×2 (11:11→21:15)
--- NOTE | 2022-07-18 12:02 | Operative Report (OR) ---
DATE OF SERVICE: 07/18/2022. PROCEDURE: Repeat low transverse section. SURGEON: Sergei Duckworth MD. PREOPERATIVE DIAGNOSES: 1. Term at 39+ weeks gestational age. 2. History of prior . 3. Insulin-dependent gestational diabetes. 4. Advanced maternal age. POSTOPERATIVE DIAGNOSES: 1. Term at 39+ weeks gestational age. 2. History of prior . 3. Insulin-dependent gestational diabetes. 4. Advanced maternal age. 5. Status post procedure. ESTIMATED BLOOD LOSS: 600 mL. DRAINS: Burgos catheter. FLUIDS: Continuous lactated Ringer. URINE OUTPUT: Per Burgos catheter. COMPLICATIONS: None. DESCRIPTION OF PROCEDURE: The patient was taken to the operating room after consents were assured. Upon presentation, she was properly identified. Spinal anesthesia was obtained without difficulty. The patient was then prepped and draped in normal sterile fashion. Preprocedural timeout was perform ed. A Pfannenstiel incision was then made with a knife. This was carried down to underlying fascia with the Bovie. The fascia was nicked at the midline with a knife and extended laterally in each dir ection with pickups and Garcia scissors. The superior aspect of the fascia was grasped with Kochers x2 , elevated off the underlying rectus muscles using blunt dissection. The inferior aspect of the fasc ia was grasped with Kochers x2, elevated off the underlying rectus muscles using blunt dissection. T he midline was then entered bluntly and placed on stretch to provide adequate room for delivery. A b ladder blade was inserted. Bladder flap created. A low transverse uterine incision was then made wi th a knife. The uterine cavity was then entered bluntly and placed on stretch to provide adequate ro om for delivery. The head of the was noted to be in cephalic position, was delivered through the hysterotomy without difficulty, body and shoulders quickly followed. was noted to be vi gorous upon delivery and a 30-second delayed cord clamping was initiated. Cord was then double clamp ed and cut. taken over to the waiting nursery staff. Cord blood was obtained. Attention wa s then turned to delivery of the placenta, which was delivered intact, 3-vessel cord, gentle cord tra ction. The uterus was then exteriorized. Several passes were made inside to remove any remaining me mbranes with a dry lap. The uterus was wrapped in wet lap and the hysterotomy was reapproximated wit h 0 Vicryl continuous running locked stitch. A second imbricating layer was performed. Posterior cu l-de-sac was cleaned of clots and debris. The tubes and ovaries were inspected and noted to be josie l. Uterus returned to maternal abdomen. Right and left pericolic gutters were cleaned of clots and debris. The hysterotomy was reinspected and noted to be hemostatic. The subcutaneous fascial and muscle layers were inspected and noted to be hemostatic. Fascia was the n reapproximated with 0 Vicryl in continuous running stitch, subcutaneous layers were reapproximated with 2-0 plain with continuous running stitch. Skin was reapproximated with 3-0 Vicryl in a subcutic ular stitch. Needle, sponge, and instrument counts were correct at the completion of the case. Both mother and stable in the immediate post-delivery period. Job ID: [id number]
[2022-07-18] MEDS: SIMETHICONE 80 MG CHEW PO SCH ×3 (13:45→20:10)
[2022-07-18] MEDS: DOCUSATE SODIUM 100 MG CAP PO SCH (20:10)
[2022-07-19] MEDS ORDERED: diphenhydrAMINE 50 MG/ML VIAL IV PRN (01:59)
[2022-07-19] MEDS ORDERED: diphenhydrAMINE Capsule 25 MG CAP PO PRN (01:59)
--- NOTE | 2022-07-19 06:04 | Obstetrical Progress Note ---
Date of Service <Nury Ledbetter - Last Filed: 07/19/22 07:20> July 19, 2022 Assessment & Plan <Nury Ledbetter - Last Filed: 07/19/22 07:20> (1) Status post delivery: continue OOB and ambulation and then progress diet as tolerated <Betsey Amaya MD, FACOG - Last Filed: 07/19/22 07:21> (1) Status post delivery: Day #:: 1 Subjective <Nury LedbetterDO - Last Filed: 07/19/22 07:20> Toshia is a 37 y/o female who is POD #1 following delivery at 39 5/7 weeks. She reports feeling well overall this morning. Mild abdominal cramping, pain well managed on analgesics. Voiding. Tolerating meals overnight and able to ambulate some. Is passing gas, no bowel movement. Has some persistent lochia with some improvement this morning. Currently breast feeding. Review of Systems Denies fever, chills, sweats Denies shortness of breath, difficulty breathing, chest pain, palpitations, chest pressure. Denies breast pain. Denies dysuria. Denies headache or changes in vision. Physical Exam <Nury LedbetterDO - Last Filed: 07/19/22 07:20> General: Alert, oriented. No acute distress. Cardiac: Regular rate and rhythm, no murmurs/rubs/gallops. Respiratory: Clear to auscultation bilaterally a/p, no wheezes/rales/rhonchi. No increased work of breathing. Symmetrical chest rise. No respiratory distress. Abdomen: Soft, nontender, nondistended. Uterus: Uterine fundus firm, palpable _ cm below umbilicus. Surgical scar clean and healing well. Lower Extremities: No lower extremity edema or swelling. No deep calf pain. <Betsey Amaya MD, FACOG - Last Filed: 07/19/22 07:21> General: Alert, oriented. No acute distress. Cardiac: Regular rate and rhythm, no murmurs/rubs/gallops. Respiratory: Clear to auscultation bilaterally a/p, no wheezes/rales/rhonchi. No increased work of breathing. Symmetrical chest rise. No respiratory distress. Abdomen: Soft, nontender, nondistended. Uterus: Uterine fundus firm, palpable 2 cm below umbilicus. Surgical scar clean and healing well. Lower Extremities: No lower extremity edema or swelling. No deep calf pain. Results & Data <Nury Ledbetter DO - Last Filed: 07/19/22 07:20> Vital Signs (Past 12 Hours) Vital Signs Temp Pulse Resp BP Pulse Ox O2 Del Method 07/19/22 02:40 36.9 C 79 18 100/64 Room Air 07/19/22 02:00 18 96 07/19/22 01:00 18 98 07/18/22 23:25 36.9 C 82 16 98/63 L 97 Room Air 07/19/22 00:15 16 97 07/18/22 23:06 16 95 07/18/22 19:20 37.2 C 89 18 117/74 99 Room Air 07/18/22 22:15 16 95 07/18/22 21:09 18 97 07/18/22 20:08 18 98 07/18/22 19:20 18 99 07/18/22 18:05 18 99 <Betsey Amaya MD, FACOG - Last Filed: 07/19/22 07:21> Co-Signing Physician Notes Resident Physician Supervision Note: I was present with Dr. Ledbetter during the history and exam. I discussed the case with the resident and agree with the findings and plan as documented in the note. Any exceptions or clarifications are listed here: doing well, discussed use of pain meds. eating, casillas out, nursing baby. abd soft nt, ff 2 down, incision c/d/i, ext nt calves. pod#1, routine care, adv diet, await voiding, ambulate. po pain meds. cbc pending. discussed use of pain meds. Documented By: Betsey Amaya MD, FACOG Resident Activity Tracking <Nury Ledbetter DO - Last Filed: 07/19/22 07:20> Resident Involvement: Resident Care Provided Care Provided: OB Delivery
[2022-07-19] MEDS: IBUPROFEN 600 MG TAB PO PRN ×3 (06:28→20:25)
[2022-07-19 06:55] LABS: Basophils # (auto) 0.03 K/uL (0-0.2); Basophils % (auto) 0.4 %; Eosinophils # (auto) 0.04 K/uL (0-0.50); Eosinophils % (auto) 0.6 %; Hematocrit (blood only) 31.9 % (37.0-47.0); Hemoglobin 10.6 g/dl (12.0-16.0); Immature Granulocytes # (auto) 0.02 K/uL (0.01-0.20); Immature Granulocytes % (auto) 0.3 %; Lymphocytes # (auto) 0.98 K/uL (1.2-3.4); Lymphocytes % (auto) 14.2 %; Mean Corpuscular Hemoglobin 29.7 pg (25.0-34.0); Mean Corpuscular Hgb Conc 33.2 g/dL (32.0-36.0); Mean Corpuscular Volume 89.4 fL (80.0-100.0); Mean Platelet Volume 10.1 fL (9.4-12.4); Monocytes # (auto) 0.56 K/uL (0.11-0.59); Monocytes % (auto) 8.1 %; Neutrophils # (auto) 5.29 K/uL (1.40-6.50); Neutrophils % (auto) 76.4 %; Platelet Count 210 K/uL (130-400); RDW Coefficient of Variation 13.2 % (11.5-14.5); RDW Standard Deviation 43.4 fL (36.4-46.3); Red Blood Count 3.57 M/uL (4.20-5.40); White Blood Count 6.92 K/ul (4.8-10.8)
[2022-07-19] MEDS: DOCUSATE SODIUM 100 MG CAP PO SCH ×2 (08:23→20:25)
[2022-07-19] MEDS: PRENATAL VITAMIN 1 TAB PO SCH (08:23)
[2022-07-19] MEDS: FERROUS SULFATE 325 MG TAB PO SCH (08:24)
[2022-07-19] MEDS: oxyCODONE/ACETAMINOPHEN 5mg/325mg TAB PO PRN ×3 (08:24→20:25)
[2022-07-19] MEDS: SIMETHICONE 80 MG CHEW PO SCH ×4 (08:25→20:25)
[2022-07-19] MEDS ORDERED: bisacodyL 5 MG TABEC PO SCH (20:00)
[2022-07-20] MEDS: oxyCODONE/ACETAMINOPHEN 5mg/325mg TAB PO PRN ×2 (05:02→11:02)
[2022-07-20] MEDS: IBUPROFEN 600 MG TAB PO PRN ×2 (05:02→11:02)
[2022-07-20 06:58] LABS: Hematocrit (blood only) 32.3 % (37.0-47.0); Hemoglobin 10.7 g/dl (12.0-16.0)
[2022-07-20] MEDS: FERROUS SULFATE 325 MG TAB PO SCH (08:22)
[2022-07-20] MEDS: SIMETHICONE 80 MG CHEW PO SCH ×2 (08:22→13:45)
[2022-07-20] MEDS: DOCUSATE SODIUM 100 MG CAP PO SCH (08:22)
[2022-07-20] MEDS: PRENATAL VITAMIN 1 TAB PO SCH (08:22)
--- NOTE | 2022-07-20 08:39 | Obstetrical Progress Note ---
Date of Service July 20, 2022 Assessment & Plan (1) Encounter for care and examination after delivery: day 2 status post repeat . Patient doing well. Continue routine care. Patient is stable for discharge if preferred Subjective Ambulation: ambulating normally Voiding: no voiding problems Passing Gas:: Yes Diet Tolerance:: regular diet Lochia:: Moderate Feeding Type:: breast feeding Physical Exam Constitutional WD/WN, vitals as above Respiratory normal respiratory effort; no respiratory distress and no labored breathing Cardiovascular No calf tenderness Gastrointestinal (Abdomen) Inspection/Auscultation: abdomen normal to inspection; abdomen not distended Percussion/Palpation: abdomen soft; abdomen nontender, no guarding and abdomen not rigid Incision healing well. Genitourinary OB Exam Abdomen: + fundal height Fundus: + firm and + relation to umbilicus (Below); not tender or not boggy Results & Data Vital Signs (Past 12 Hours) Vital Signs Temp Pulse Resp BP O2 Del Method 07/19/22 23:00 36.6 C 78 16 109/71 Room Air
[2022-07-20] MEDS ORDERED: bisacodyL 10 MG SUPP PR PRN (08:41)
--- NOTE | 2022-07-24 12:05 | Discharge Summary (DS) ---
DATE OF ADMISSION: 07/18/2022. DATE OF DISCHARGE: 07/20/2022. HOSPITAL COURSE: The patient was admitted for a scheduled repeat section. A low transverse section was performed without complication. The patient remained in-house until day #2 without complication or issue arising. The patient was discharged home in stable condition w ith both written and verbal discharge instructions. Job ID: [id number]
== END 2022-07-20 14:10 | disposition home or self-care (01) | DRG 788 ==
LOC: 4S1 05:32 → 4E2 11:56 → EDSTATUS 09-17 07:30